=== PATIENT | female | born 1965 | race Caucasian/White ===

== ENCOUNTER → 2017-05-11 | Outpatient (CLI) | payer BC ==
[~2017-05-11] MED LIST: CLINDAMYCIN PHO60 GM TP; LEXAPRO10 MG PO; VITAMIN B-1000 MCG/M IM; ZANTAC150 MG PO
== END ==
LOC: CT 10:37
DX: R22.1 Localized swelling, mass and lump, neck (principal)
CPT/HCPCS: 70491; J7050; Q9962